=== PATIENT | male | born 1975 | race Two or more races ===

== ENCOUNTER 2019-02-20 11:48 | Emergency (ER) | payer OTHER ==
[~2019-02-20] VITALS: Ht 182.9 cm; Wt 86.2 kg
== END 2019-02-20 14:23 | disposition home or self-care (01) ==
LOC: ER 11:48
DX: S80.02XA Contusion of left knee, initial encounter (principal); W22.09XA Striking against other stationary object, initial encounter; Y93.89 Activity, other specified; Y92.832 Beach as the place of occurrence of the external cause; Y99.8 Other external cause status

== ENCOUNTER → 2019-07-24 | Emergency (ER) | payer OTHER ==
[~2019-07-24] VITALS: Ht 182.9 cm; Wt 84.4 kg
[~2019-07-24] MED LIST: OSEL75CA PO
== END | disposition home or self-care (01) ==
LOC: ER 14:41
DX: J11.1 Influenza due to unidentified influenza virus with other respiratory manifestations (principal)

== ENCOUNTER 2020-10-31 06:38 | Emergency (ER) | payer OTHER ==
[~2020-10-31] VITALS: Ht 182.9 cm; Wt 91.2 kg
[2020-10-31] MEDS ORDERED: OMEGA 3 FISH O1 EACH (07:23)
== END 2020-10-31 13:48 | disposition home or self-care (01) ==
LOC: ER 06:38
DX: K57.30 Diverticulosis of large intestine without perforation or abscess without bleeding (principal); R10.31 Right lower quadrant pain